=== PATIENT | female | born 1970 | race Caucasian/White ===

== ENCOUNTER 2024-11-21 08:45 | Day surgery (SDC) | payer BC, SELFPAY ==
[2024-11-21 09:25] VITALS: BP 139/83; PULSE 59; RESP 14; TEMP 36.8; O2SAT 100
[2024-11-21] MEDS: LACTATED RINGERS 1,000 ML 150 ML IV (09:28)
--- NOTE | 2024-11-21 10:13 | PM.HP.IH.1 ---
History of Present Illness History of Present Illness Date Patient Seen: 11/21/24 Time Patient Seen: 10:13 Chief complaint: SDC Narrative: 54-year-old white female presents for colon cancer screening. No changes in bowel habits. No family history. [facility] Social History Smoking Status: Never smoker Meds Home Medications and Allergies Home Medications Medication Instructions Recorded Confirmed Type carvedilol 12.5 mg tablet 12.5 mg PO BID 11/21/24 11/21/24 History Allergies Allergy/AdvReac Type Severity Reaction Status Date / Time No Known Drug Allergies Allergy Verified 11/21/24 09:13 Exam Vital Signs (past 8 hours): - 11/21/24 09:25 Temperature 98.2 F Pulse Rate 59 L Respiratory Rate 14 Blood Pressure 139/83 Pulse Oximetry 100 Oxygen Delivery Method Room Air Oxygen Delivery Method Room Air Narrative Exam Narrative: Gen: NAD, sitting comfortably in bed, appears well HEENT: Sclera are anicteric, head is normocephalic and atraumatic, trachea is midline. CV: RRR, no JVD Resp: clear to auscultation bilaterally, equal chest wall movement bilaterally Abd: soft, nontender, normoactive bowel sounds Ext: no edema, full range of motion Neuro: Cranial nerves II-XII grossly intact, no focal deficits Skin: No erythema or ecchymosis Assessment & Plan Assessment and plan (1) Colon cancer screening: Status: Acute Assessment & Plan narrative: Patient presents for colonoscopy Risks, benefits, alternatives to colonoscopy explained, including but not limited to bowel perforation or other serious complication requiring surgery at less than 1 in 5000 colonoscopies, abdominal pain, cramping or bleeding and less than 1% of colonoscopies, and the chances that we find a diagnosis that would require further intervention of about 2%. Patient agrees to proceed. Time-Based Coding :: [TOTAL MINUTES] spent with patient and on the chart (including review of chart, obtaining history, exam, reviewing outside data, placing orders, documenting exam and treatment plan, and counseling patient) on [DATE]. [employer] Anesthesiology Physician Assistant Document charge(s): No
--- NOTE | 2024-11-21 10:32 | P.OP.COLON_ITS ---
Operative Date/Time/Diagnoses Date of procedure: 11/21/24 Time of procedure: 10:32 Pre-op diagnosis: Colon screening Post-op diagnosis: same Procedure & Clinicians Study performed: Colonoscopy Same procedure as scheduled: Yes Indications: Colon screening Surgeon: Abraham Otoole Procedure Notes SCOAP/Timeout: Performed Procedure in detail: Time-out was performed. Mac was induced. Patient was placed in left lateral d ecubitus position. The perineum was inspected without any gross abnormality. Lubricated pediatric colonoscope was inserted and advanced to the cecum. The terminal ileum was intubated. The colonoscope was withdrawn slowly inspecting the circumference of the colon. Very small polyps may have been missed, prep quality was adequate. Retroflexed view of the rectum showed small, non prolapsed nonbleeding internal hemorrhoids. The scope was withdrawn the patient was taken to PACU in good condition. Scope withdrawal time: 6 Specimen(s): none sent Complications: none Impression: Normal colon Post-procedure Recommendations: Colonoscopy in 10 years Follow up: as needed Disposition: PACU
[2024-11-21 10:40] VITALS: BP 101/68; PULSE 61; RESP 16; TEMP 36.2; O2SAT 98
[2024-11-21 10:41] VITALS: BP 113/81; PULSE 61; RESP 16; O2SAT 98
[2024-11-21 10:48] VITALS: BP 113/81; PULSE 66; RESP 16; O2SAT 98
[2024-11-21 10:58] VITALS: BP 112/70; PULSE 68; RESP 16; TEMP 36.2; O2SAT 98
== END 2024-11-21 11:07 | disposition home or self-care (01) ==
PROVIDERS: Referring Provider Surgery; Visit Provider Surgery
PROC: 0DJD8ZZ Inspection of Lower Intestinal Tract, Via Natural or Artificial Opening Endoscopic (ICD-10-PCS; CPT 45378; principal; 2024-11-21 10:00)
DX: Z12.11 Encounter for screening for malignant neoplasm of colon (principal); K64.8 Other hemorrhoids
CPT/HCPCS: 45378; J2704